=== PATIENT | female | born 1995 | race Caucasian/White ===

== ENCOUNTER 2025-07-28 15:42 | Emergency (ER) | payer OTHER, SELFPAY ==
[2025-07-28 15:50] VITALS: BP 155/117
[2025-07-28 16:19] LABS: Hematocrit 38.0 % (37.0-47.0); Hemoglobin 12.6 g/dL (12.0-16.0); Mean Corp Hgb Conc. 33.2 g/dL (33.0-37.0); Mean Corpuscular Volume 88.6 fL (81.0-99.0); Nucleated Red Blood Cells % 0 %; Platelet Count 272 10^3/uL (130-400); Red Cell Dist. Width 12.9 % (11.5-14.5)
[2025-07-28 16:33] LABS: ALT (SGPT) 25 U/L (0-35); AST (SGOT) 27 U/L (14-36); Albumin 5.0 g/dl (3.5-5.0); Alkaline Phosphatase 42 U/L (38-126); Blood Urea Nitrogen 9 mg/dl (7-17); Calcium 9.1 mg/dl (8.4-10.2); Carbon Dioxide 22 mmol/L (22-30); Chloride 102 mmol/L (98-107); Glucose 88 mg/dl (70-99); Potassium 3.9 mmol/L (3.5-5.1); Sodium 135 mmol/L (135-145); Total Protein 8.0 g/dl (6.3-8.2); eGFR > 60.00
[2025-07-28 16:38] LABS: Troponin I < 0.012 ng/ml
--- NOTE | 2025-07-28 21:55 | ED.GENMED ---
History of Present Illness
General
Chief Complaint: Heart Rate Problem
Source: patient and other (co worker)
Exam Limitations: none
Time Seen by Provider: 07/28/25 21:40
History of Present Illness
History of Present Illness:
This patient is a 30-year-old female presents emergency department episode of palpitations lightheadedness on and off for the past, last minutes to hours and is mild without specific provoking or relieving factors. Patient denies associated chest
pain, leg swelling and similar to patient had a recent trauma, recent immobiliz, estrogen use, smoking hx, or other PE rf. No cough/st/f/rhinorrhea. Pt asx now.
Past History
Past History
ED Past Medical History: Other (Asthma, anemia, TBI)
ED Past Surgical History: Other (Ventriculostomy tracheotomy, feeding tube)
Social History
Tobacco: Non-smoker
Alcohol: Occasional
Drug: None
Personal: Single
Living: alone
Employment: Employed
Phy Exam
Physical Exam
Physical Exam:
GENERAL: Alert , in no apparent distress
EYE: pupils equal and reactive
NECK: Supple, no significant adenopathy.
ENT: o/p clr, mmm.
CARDIAC: Regular rate and rhythm .
LUNGS: Clear breath sounds bilaterally, no acute respiratory distress, no wheezes/rales/rhonchi
ABDOMEN: Soft, without focal tenderness, no r/g, no cvat
NEUROLOGICAL: Alert and oriented, no focal neuro deficits
SKIN: Warm and dry, skin intact.
MUSCULOSKELETAL: No edema, well perfused.
PSYCH: Normal and appropriate interaction.
Course
Orders/Labs/Results
Orders:
Orders
07/28/25 15:56
Electrocardiogram (*1) Urgent
Reason for Study: Tachycardia
EKG- Treatment ONCE
07/28/25 16:02
CMP [Comprehensive Metabolic Panel] Urgent
Complete Blood Count/With Diff Urgent
TSH Urgent
Comment: ADD ON
Troponin I Urgent
07/28/25 22:06
Add On- LAB Urgent
Comments:: add on
Tests Added?: tsh
Abnormal Lab Results
07/28/25
16:02
TSH 0.45 L uIU/ml
(0.47-4.68)
07/28/25 16:02
07/28/25 16:02
Vital Signs
Initial and Last Documented VS:
Initial Vital Signs
Temp Pulse Resp BP Pulse Ox
97.7 F 118 16 155/117 100
07/28/25 15:50 07/28/25 15:50 07/28/25 15:50 07/28/25 15:50 07/28/25 15:50
Last Documented Vital Signs
Temp Pulse Resp BP Pulse Ox
97.7 F 93 18 125/89 100
07/28/25 15:50 07/28/25 22:13 07/28/25 22:13 07/28/25 22:13 07/28/25 22:13
*Pulse Oximetry
SaO2: 100
Oxygen Mode of Delivery: Room air
Patient hypoxic: no
*Critical Care Note
Total Time (30-74mins, 75-104mins- exclusive of procedures): Not Applicable
Update Note
Update Note:
Patient presents to the Emergency Department with palpitations
Number and Complexity of Problems Addressed at the Encounter
� Chronic conditions affecting care:
� Acute Exacerbation and/or Progression of Chronic Illness:
� Differential Diagnosis includes: But not limited to electrolyte disorder, hypothyroidism, PVCs, SVT, A-fib, a flutter, anxiety, etc. etc.
Amount and/or Complexity of Data to be Reviewed and Analyzed
� I performed an independent evaluation of and my interpretation is:
EKG: Read by me, normal sinus rhythm, normal rate, normal axis, no acute ischemia
CT:
Xrays:
Laboratory Studies: Unremarkable
Other:
� Review of other/old records reveals:
� Clinical information was obtained by an independent historian: Coworker who is an RN is at bedside
� Prescriptions/Medications Considered but not given:
� Further testing considered but not performed:
Risk of Complications and/or Morbidity or Mortality of Patient Management
� Social determinants of health affecting care:
� Discussion with other providers (PCP, Hospitalists, Consultants, etc):
� Escalation of care including admission/observation vs risk of discharge considered: Patient's workup here unremarkable. Highly doubt PE as cause of her symptoms given lack of identifiable risk factors, and typical
presentation/for chest pain, dyspnea, etc. TSH is pending, patient prefers to go home and follow-up regarding this result as well as cardiology. Discussed with patient portance of follow-up and reasons return to ER.
ED Attending Note
-
Portions of this chart may have been created with voice recognition software.� Occasional wrong word or��sound alike� substitutions may have occurred due to the inherent limitations of voice recognition software.
Discharge Plan
Departure
Patient Disposition: Home (Routine Discharge)
Date of Disposition: 07/28/25
Time of Disposition: 22:00
Patient with high blood pressure during this ER visit?: Yes
Condition: Good
Discharge Problem:
Heart palpitations
Instructions: Palpitations (DC), BLOOD PRESSURE
Referrals:
Jazmine Quinones, DO [Active, Cardiology] - Next open appointment
Activity Restrictions/Additional Instructions:
IF YOU DEVELOP DIZZINESS, CHEST PAIN, TROUBLE BREATHING, PERSISTENT PALPITATIONS, OR OTHER WORRISOME SIGNS, GO TO THE ER IMMEDIATELY!
Interventions
Interventions:
*General Assessment Last Done: 07/28/25 22:03
*Neglect/Abuse Screening Last Done: 07/28/25 15:50
*ED COVID-19 Vaccine History Last Done: 07/28/25 22:03
*ED Influenza Vaccine History Last Done: 07/28/25 22:03
*Risk Screen - Suicide (C-SSRS) Last Done: 07/28/25 22:03
*Nursing Disposition Last Done: 07/28/25 22:03
Discharge Date and Time
Discharge Date/Time: 07/28/25 22:36
Print Language: OCCITAN
[2025-07-28 22:13] VITALS: BP 125/89
[2025-07-28 23:09] LABS: TSH 0.45 uIU/ml (0.47-4.68)
== END 2025-07-28 22:36 | disposition home or self-care (01) ==
LOC: EMR 15:42
PROVIDERS: Physician Assistant Medical; EMERGENCY PHYSICIAN Emergency Medicine
DX: R00.2 Palpitations (principal); R42 Dizziness and giddiness; J45.998 Other asthma; Z79.890 Hormone replacement therapy; Z87.820 Personal history of traumatic brain injury
CPT/HCPCS: 99283; 80053; 84443; 84484; 85025; 93005

== ENCOUNTER → 2025-08-06 08:30 | Outpatient (REF) | payer OTHER, SELFPAY | LOC: RCS 08:30 | PROVIDERS: ATTENDING PHYSICIAN Nurse Practitioner Adult Health | DX: R00.2 Palpitations (principal) | CPT/HCPCS: 93225; 93226 ==